=== PATIENT | female | born 1985 | race African-American/Black ===

== ENCOUNTER 2022-04-28 05:36 | Emergency (ER) | payer BC, SELFPAY ==
--- NOTE | ~2022-04-28 | XR_ITS ---
EXAMINATION: XR chest 1V portable DATE: 04/28/2022 06:20 INDICATION: Chest pain TECHNIQUE: frontal view of the chest was obtained. COMPARISON: Chest radiograph dated 08/10/2018 FINDINGS: The lungs remain clear with no focal airspace opacities, pulmonary edema, pleural effusion or pneumot horax. The cardiomediastinal silhouette is normal. Visualized bones and soft tissues are unremarkable . IMPRESSION: 1. No acute cardiopulmonary disease. Reviewed, dictated and finalized at location A.
--- NOTE | 2022-04-28 05:37 | ECG_ITS ---
Measurements Intervals [place] Rate: 87 P: 42 SC: 122 QRS: 18 QRSD: 88 T: 39 QT: 341 QTc: 411 Interpretive Statements SINUS RHYTHM BASELINE ARTIFACT NONSPECIFIC ST ABNORMALITY BORDERLINE ECG NO PREVIOUS ECG AVAILABLE FOR COMPARISON Electronically Signed On 04-28-2022 15:42:14 CDT by Bill Bustos M.D.
[2022-04-28 05:41] VITALS: BP 141/95; PULSE 89; RESP 18; TEMP 37.1; O2SAT 100
--- NOTE | 2022-04-28 05:59 | ED.CHESTPAIN ---
HPI - Chest Pain General Chief Complaint: Chest Pain Stated Complaint: Chest pain Time Seen by Provider: 04/28/22 05:38 History of Present Illness HPI narrative: Patient is a 36-year-old female with no past medical history presenting with chest pain. Patient states that she pulled a muscle in her upper back earlier this week while at work. States that the pain radiated to the left side of her chest. States that it went away but then it returned last night. Patient took a heartburn pill before bed which did not improve the pain. She has not tried anything else for pain. She denies shortness of breath, palpitations, lightheadedness, leg swelling, cough. Denies fevers, headache, abdominal pain, nausea or vomiting, diarrhea, dysuria. Related Data Allergies Allergy/AdvReac Type Severity Reaction Status Date / Time acetaminophen Allergy Unknown Verified 07/26/15 12:31 hydrocodone Allergy Unknown Verified 07/26/15 12:31 Mushroom Allergy Unknown Uncoded 07/26/15 12:30 Review of Systems Review of Systems: All systems reviewed & are unremarkable except as noted in HPI and below Exam Narrative: GENERAL: Well-appearing, well-nourished, and in no acute distress. HEAD: Normocephalic, atraumatic. EYES: PERRLA and EOMI. ENT: Nares clear, no rhinorrhea or epistaxis. Mucous membranes moist. NECK: Supple. CHEST: Clear to auscultation. No respiratory distress. HEART: Regular rate and rhythm. No murmur heard. Normal peripheral pulses. ABDOMEN: Soft, nontender, nondistended, normal active bowel sounds. EXTREMITIES: Normal range of motion. No edema. SKIN: Warm, dry, no rash. NEURO: No focal deficits. Alert and oriented x3. PSYCH: Normal mood and affect. Course Course Emergency Course: Patient is a 36-year-old female presenting with chest pain. Vitals are within normal limits. Patient is well-appearing and in no acute distress. Exam is unremarkable. EKG per my interpretation shows normal sinus rhythm, normal axis and intervals, no ST elevations or depressions. PERC negative. Blood work concerning for a hemoglobin of 7.6. Patient states that she has been told in the past that her blood counts are low. States that she has had very heavy menstrual periods for the last year. She denies any lightheadedness, shortness of breath, palpitations. Her vitals remain within normal limits with normal blood pressures so I think this anemia can be worked up on an outpatient basis. The rest of her blood work is reassuring. Recommended that she follow-up closely with her PCP as well as [facility]. Strict return precautions given. Patient voiced understanding and is agreeable with plan. Discharged in stable condition. Vital Signs Vital signs: Vital Signs Temperature 98.7 F 04/28/22 05:41 Pulse Rate 89 04/28/22 05:41 Respiratory Rate 18 04/28/22 05:41 Blood Pressure 141/95 H 04/28/22 05:41 Pulse Oximetry 100 04/28/22 05:41 Oxygen Delivery Room Air 04/28/22 05:41 Temperature 98.7 F 04/28/22 05:41 Pulse Rate 71 04/28/22 07:21 Respiratory Rate 18 04/28/22 07:21 Blood Pressure 125/91 H 04/28/22 07:21 Pulse Oximetry 100 04/28/22 07:21 Oxygen Delivery Room Air 04/28/22 05:41 MDM - Chest Pain Lab Data Result diagrams: 04/28/22 06:13 04/28/22 06:13 Labs: Lab Results 04/28/22 04/28/22 Range/Units 06:13 06:13 WBC 7.7 (4.5-10.0) K/mm3 RBC 4.58 (4.2-5.4) M/mm3 Hgb 7.6 L (12.0-15.0) g/dL Hct 27.9 L (37.0-47.0) % MCV 60.9 L (80-100) fl MCH 16.6 L (26-34) pg MCHC 27.2 L (32-36) g/dl RDW 22.0 H (11.5-14.5) % Plt Count 357 (150-375) k/mm3 MPV TNP Immature Gran % (Auto) 0.1 (0-0.5) % Neut % (Auto) 53.8 (45.5-73.1) % Lymph % (Auto) 34.1 (18.3-44.2) % [place] % (Auto) 8.5 (2.6-8.5) % Eos % (Auto) 2.6 (0-4.4) % Baso % (Auto) 0.9 (0.2-1.2) % Lymph # (Auto) 2.61 (0.9-3.2) K/mm3 [place] # (Auto) 0.7 H (0.1-0.6) K/mm3
[2022-04-28 06:23] LABS: Basophils Absolute Auto 0.1 K/mm3 (0.0-0.1); Basophils Percent Auto 0.9 % (0.2-1.2); Eosinophils Absolute Auto 0.2 K/mm3 (0-0.3); Eosinophils Percent Auto 2.6 % (0-4.4); Hematocrit 27.9 % (37.0-47.0); Hemoglobin 7.6 g/dL (12.0-15.0); Immature Granulocyte Absolute 0.01 K/mm3 (0.00-0.031); Immature Granulocyte Percent A 0.1 % (0-0.5); Immature Platelet Fraction Pct 7.6 % (0.9-11.2); Lymphocytes Absolute Auto 2.61 K/mm3 (0.9-3.2); Lymphocytes Percent Auto 34.1 % (18.3-44.2); Mean Corpuscular HGB Conc 27.2 g/dl (32-36); Mean Corpuscular Hemoglobin 16.6 pg (26-34); Mean Corpuscular Volume 60.9 fl (80-100); Monocytes Absolute Auto 0.7 K/mm3 (0.1-0.6); Monocytes Percent Auto 8.5 % (2.6-8.5); Neutrophils Absolute Auto 4.1 K/mm3 (1.3-6.7); Neutrophils Percent Auto 53.8 % (45.5-73.1); Platelet Count Result 357 k/mm3 (150-375); Red Blood Count 4.58 M/mm3 (4.2-5.4); White Blood Count 7.7 K/mm3 (4.5-10.0)
[2022-04-28 06:36] LABS: Alanine Aminotransferase 19 U/L (6-35); Albumin Level 4.3 g/dL (3.5-5.1); Alkaline Phosphatase 75 U/L (38-126); Anion Gap 9 mmol/L (8-16); Aspartate Amino Transferase 27 U/L (14-36); Bilirubin,Total 0.2 mg/dL (0.2-1.3); Blood Urea Nitrogen 13 mg/dL (7-17); Calcium 8.8 mg/dL (8.4-10.2); Carbon Dioxide 28 mmol/L (22-30); Chloride 102 mmol/L (98-107); Estimated CRCL calculation 140 ml/min; Estimated Glomerular Filt Rate > 60; Glucose 103 mg/dL (65-110); Potassium 3.9 mmol/L (3.4-5.0); Sodium 139 mmol/L (137-145)
[2022-04-28] MEDS: KETOROLAC 30 MG/ML VIAL (*BKC) IV PUSH (06:47)
[2022-04-28 06:48] LABS: Troponin I < 0.012 ng/mL (0.000-0.034)
[2022-04-28 06:50] VITALS: BP 113/96; PULSE 73; RESP 16; O2SAT 100
[2022-04-28 06:50] LABS: Platelet Estimate Adequate (Adequate)
[2022-04-28 06:51] LABS: Anisocytosis 1+ (NORMAL); Hypochromasia 2+ (NORMAL); Macrocytosis 1+ (NORMAL); Poikilocytosis 2+ (NORMAL)
[2022-04-28 06:54] LABS: Ovalocytes 1+ (NORMAL); Schistocytes 1+ (NORMAL); Target Cells 1+ (NORMAL)
[2022-04-28] MEDS: CYCLOBENZAPRINE HCL 10 MG TABLET PO (07:10)
[2022-04-28 07:21] VITALS: BP 125/91; PULSE 71; RESP 18; O2SAT 100
== END 2022-04-28 07:23 | disposition home or self-care (01) ==
PROVIDERS: Emergency Provider Emergency Medicine
DX: R07.89 Other chest pain (principal); D64.9 Anemia, unspecified
CPT/HCPCS: 36415; 71045; 80053; 84484; 85025; 85055; 93005; 96374; 99284; A9270; J1885